=== PATIENT | male | born 1975 | race Native Hawaiian/Other Pacific Islander ===

== ENCOUNTER 2018-07-17 11:55 | Emergency (ER) | payer OTHER ==
[~2018-07-17] VITALS: Ht 175.3 cm; Wt 62.3 kg
[2018-07-17 11:56] VITALS: BP 133/90
[2018-07-17] MEDS ORDERED: ACYC1CAP20 PO (12:07)
[2018-07-17] MEDS ORDERED: ADDE1TAB14 PO (12:07)
[2018-07-17] MEDS ORDERED: IBUP80TA PO (12:07)
[2018-07-17] MEDS ORDERED: BACT800T5 PO (12:52)
[2018-07-17] MEDS ORDERED: IBUP-1022 PO (12:52)
== END 2018-07-17 13:05 | disposition home or self-care (01) ==
LOC: M ED 11:55
DX: L72.3 Sebaceous cyst (principal); Z87.891 Personal history of nicotine dependence; Z91.048 Other nonmedicinal substance allergy status; Z91.040 Latex allergy status; Z79.899 Other long term (current) drug therapy

== ENCOUNTER 2018-10-08 17:06 | Emergency (ER) | payer OTHER, MEDICAID ==
[~2018-10-08] VITALS: Ht 175.3 cm; Wt 65.6 kg
[~2018-10-08 17:06] MED LIST: ACYC1CAP20 PO; ADDE1TAB14 PO; BACT800T5 PO; IBUP-1022 PO; IBUP80TA PO
[2018-10-08] MEDS ORDERED: RANI1TAB38 PO (17:15)
[2018-10-08] MEDS ORDERED: LIDOCAINE 5% (LIDODERM) PATCH TD ONE (18:45)
[2018-10-08 18:52] LABS: BASO # 0.1 10^3/uL (0.0-0.2); BASO % 0.9 % (0.0-1.0); EOS # 0.4 10^3/uL (0.0-0.50); EOS % 6.6 % (0.0-3.0); HEMATOCRIT 46.1 % (42.0-52.0); LYMPH # 2.1 10^3/uL (1.5-4.5); LYMPH % 33.1 % (24.0-44.0); MEAN CORPUSCULAR HEMOGLOBIN 31.5 pg (27.0-33.0); MEAN CORPUSCULAR HGB CONC 34.7 g/dl (32.0-36.5); MEAN CORPUSCULAR VOLUME 90.7 fl (80.0-96.0); MONO # 0.4 10^3/uL (0.0-0.8); NEUTROPHILS # 3.4 10^3/uL (1.8-7.7); NEUTROPHILS % 53.2 % (36.0-66.0); PLATELET COUNT, AUTOMATED 271 10^3/uL (150-450); RED BLOOD COUNT 5.08 10^6/uL (4.30-6.10); WHITE BLOOD COUNT 6.3 10^3/uL (4.0-10.0)
[2018-10-08] MEDS ORDERED: **NOTE PATIENT COMMENT** MISC XX SCH (21:00)
--- NOTE | 2018-10-08 21:09 | REPVR ---
EXAM: US Retroperitoneal Limited, Kidneys EXAM DATE/TIME: 10/08/2018 7:51 PM CLINICAL HISTORY: 43 years old, male; Abdominal pain; Flank; Left; Additional info: Left back/flank pain, polyuria TECHNIQUE: Imaging protocol: Real-time ultrasound of the retroperitoneum with image documentation. Examination was focused on the kidneys. COMPARISON: No relevant prior studies available. FINDINGS: Right kidney: The right kidney measures 11.5 x 5.3 x 6.1 cm.. No hydronephrosis. There is a well-circumscribed hypoechoic exophytic lesion projecting off the upper pole of the right kidney measuring 1 cm in maximum diameter. A second hypoechoic lesion with internal echoes noted in the upper pole measuring 1.6 x 2 x 2.6 cm. The rim appears somewhat thickened. The lesion is avascular on color Doppler examination. Left kidney: The left kidney measures 11.3 x 6.3 x 5.4 cm.. No hydronephrosis. There is a simple cyst in the lower pole measuring 3.4 x 3 x 3 cm. Bladder: The bladder is relatively decompressed. IMPRESSION: 1. No hydronephrosis in either kidney. 2. 2 cysts with internal echoes in the upper pole the right kidney. The largest measures 2.6 cm Findings suggest a thickened rim and internal echoes in the larger lesion. Ultrasound should be performed. If cysts are not seen in this location, CT or MR with contrast should be performed. 3. Simple cyst in the lower pole of the left kidney. COMMENT: Consistent with the [employer]'s Incidental Findings Committee Report (J Am Rubens Radiol 2010): Unless the patient's specific circumstances suggest otherwise, any liver lesion 0.5 cm or less, any cystic kidney lesion less than 1.0 cm, and/or any adrenal lesion 1.0 cm or less not otherwise characterized in this report as possessing suspicious or indeterminate imaging features is/are highly likely to be benign and do not require follow-up imaging or biopsy. Electronically signed by: Britni Harris On 10/08/2018 21:09:11 PM
[2018-10-08] MEDS ORDERED: NAPR-837 PO (21:28)
[2018-10-08] MEDS ORDERED: LIDO5DIS41 TD (21:28)
[2018-10-08] MEDS ORDERED: ROBA500T PO (21:28)
[2018-10-08] MEDS ORDERED: METHOCARBAMOL 750 MG TAB PO ONE (21:30)
[2018-10-08 21:36] VITALS: BP 129/93
[2018-10-09] MEDS ORDERED: **NOTE PATIENT COMMENT** MISC XX ONE (07:00)
--- NOTE | 2018-10-09 12:48 | ED PDOC ---
Post-Departure Follow-Up rahel leger faxed formal report of renal us for fu Aurelio Asif MD Oct 09, 2018 12:48
== END 2018-10-08 21:38 | disposition home or self-care (01) ==
LOC: M ED 17:06
DX: M54.5 Low back pain (principal); R93.89 Abnormal findings on diagnostic imaging of other specified body structures; N28.1 Cyst of kidney, acquired; R35.8 Other polyuria; N45.1 Epididymitis; Z91.040 Latex allergy status; Z91.048 Other nonmedicinal substance allergy status; Z79.899 Other long term (current) drug therapy

== ENCOUNTER 2018-12-22 16:21 | Emergency (ER) | payer OTHER, MEDICAID ==
[~2018-12-22] VITALS: Ht 175.3 cm; Wt 71.4 kg
[~2018-12-22 16:21] MED LIST changes: +LIDO5DIS41 TD; +NAPR-837 PO; +RANI1TAB38 PO; +ROBA500T PO
[2018-12-22] MEDS ORDERED: ACET-683 PO (16:30)
[2018-12-22] MEDS ORDERED: KETOROLAC 30 MG/ML VIAL (J1885) IV ONE (17:30)
[2018-12-22] MEDS ORDERED: NS 1,000 ML IV ONE (17:30)
[2018-12-22] MEDS ORDERED: ONDANSETRON 4MG/2ML VIAL (J2405) IV ONE (17:30)
[2018-12-22 17:32] LABS: BASO # 0.1 10^3/uL (0.0-0.2); BASO % 0.6 % (0.0-1.0); EOS # 0.3 10^3/uL (0.0-0.5); EOS % 3.1 % (0.0-3.0); HEMATOCRIT 46.1 % (42.0-52.0); HEMOGLOBIN 15.5 g/dl (13.5-17.5); LYMPH # 1.4 10^3/uL (1.5-5.0); LYMPH % 15.9 % (24.0-44.0); MEAN CORPUSCULAR HGB CONC 33.6 g/dl (32.0-36.5); MEAN CORPUSCULAR VOLUME 92.2 fl (80.0-96.0); MONO # 0.6 10^3/uL (0.0-0.8); MONO % 6.9 % (0.0-5.0); NEUTROPHILS # 6.7 10^3/uL (1.5-8.5); NEUTROPHILS % 73.3 % (36.0-66.0); PLATELET COUNT, AUTOMATED 248 10^3/uL (150-450); WHITE BLOOD COUNT 9.1 10^3/uL (4.0-10.0)
[2018-12-22 17:58] LABS: ALBUMIN 3.8 GM/DL (3.2-5.2); ALT/SGPT 21 U/L (12-78); AMYLASE 64 U/L (25-115); BILIRUBIN,DIRECT 0.2 MG/DL (0.0-0.2); BILIRUBIN,TOTAL 0.5 MG/DL (0.2-1.0); BLOOD UREA NITROGEN 21 MG/DL (7-18); CALCIUM LEVEL 8.2 MG/DL (8.5-10.1); CARBON DIOXIDE LEVEL 29 MEQ/L (21-32); CHLORIDE LEVEL 102 MEQ/L (98-107); CPK CREATINE PHOSPHOKINASE 358 U/L (39-308); CREATININE FOR GFR 1.09 MG/DL (0.70-1.30); GLOMERULAR FILTRATION RATE > 60.0 (>60); GLUCOSE, FASTING 92 MG/DL (70-100); LIPASE 266 U/L (73-393); POTASSIUM SERUM 4.2 MEQ/L (3.5-5.1); SODIUM LEVEL 136 MEQ/L (136-145); TOTAL PROTEIN 6.8 GM/DL (6.4-8.2)
--- NOTE | 2018-12-22 18:01 | REPVR ---
PROCEDURE INFORMATION: Exam: CT Head without contrast Exam date and time: 12/22/2018 5:04 PM Clinical history: 43 years old, male; Pain; Headache not specified TECHNIQUE: Imaging protocol: Computed tomography of the head without contrast. Radiation optimization: All CT scans at this facility use at least one of these dose optimization techniques: automated exposure control; mA and/or kV adjustment per patient size (includes targeted exams where dose is matched to clinical indication); or iterative reconstruction. COMPARISON: No relevant prior studies available. FINDINGS: Brain: No hemorrhage. Unremarkable white matter for the patient's age. No mass effect. No evolving territorial infarct. Ventricles: No ventriculomegaly. Bones/joints: Unremarkable. No acute fracture. Sinuses: Visualized sinuses are unremarkable. No fluid levels. Mastoid air cells: Visualized mastoid air cells are well aerated. Soft tissues: Unremarkable. IMPRESSION: No acute intracranial abnormality seen. Electronically signed by: Una Moon On 12/22/2018 18:00:56 PM
[2018-12-22] MEDS ORDERED: ACETAMINOPHEN 325 MG TAB PO ONE (19:00)
--- NOTE | 2018-12-22 20:10 | REPVR ---
PROCEDURE INFORMATION: Exam: US Abdomen Limited, Right Upper Quadrant Exam date and time: 12/22/2018 7:45 PM Clinical history: 43 years old, male; Other: Pain after eating; Additional info: Ruq pain after eating TECHNIQUE: Imaging protocol: Real-time ultrasound of the abdomen with image documentation. Examination was focused on the right upper quadrant. COMPARISON: RENAL US 10/08/2018 7:42 PM FINDINGS: Liver: Normal. No masses. Gallbladder: The gallbladder wall measures 1.6 mm. Small echogenic focus along the nondependent gallbladder wall most likely representing a polyp measuring 2.4 mm. No visible shadowing stones. The sonographic Malik's sign was negative. Common bile duct: The common bile duct measures 3.6 mm. Pancreas: Visualized pancreas is unremarkable. Right kidney: The right kidney measures 11.9 cm in length. There are renal cysts, the largest measuring 2.1 cm. No hydronephrosis. IMPRESSION: No acute findings. Electronically signed by: Una Moon On 12/22/2018 20:10:11 PM
[2018-12-22 20:35] VITALS: BP 114/76
== END 2018-12-22 20:44 | disposition home or self-care (01) ==
LOC: M ED 16:21
DX: E86.0 Dehydration (principal); R51 Headache; R42 Dizziness and giddiness; R10.11 Right upper quadrant pain; Z91.040 Latex allergy status
CPT/HCPCS: 70450; 76705; 80048; 80076; 81001; 82150; 82550; 83690; 85025; 96361; 96374; 96375; 99284; J1885; J2405

== ENCOUNTER → 2019-03-13 | Outpatient (REF) | payer OTHER ==
[~2019-03-13] MED LIST changes: +ACET-683 PO
[2019-03-13 17:43] LABS: APPEARANCE, URINE CLEAR (CLEAR); BACTERIA, URINE AUTO NEGATIVE (NEGATIVE); BILIRUBIN, URINE AUTO NEGATIVE (NEGATIVE); BLOOD, URINE BLOOD NEGATIVE (NEGATIVE); COLOR, URINE YELLOW (YELLOW); GLUCOSE, URINE (UA) AUTO NEGATIVE (NEGATIVE); KETONE, URINE AUTO NEGATIVE (NEGATIVE); LEUKOCYTE ESTERASE, URINE AUTO NEGATIVE (NEGATIVE); MUCUS, URINE SMALL (NEGATIVE); NITRITE, URINE AUTO NEGATIVE (NEGATIVE); PROTEIN, URINE AUTO NEGATIVE (NEGATIVE); RBC, URINE AUTO 0 /HPF (0-3); SPECIFIC GRAVITY URINE AUTO 1.017 (1.002-1.035); SQUAMOUS EPITHELIAL CELL UR AU 0 /HPF (0-6); UROBILINOGEN, URINE AUTO 0.2 mg/dL (0.0-2.0); WBC, URINE AUTO 0 /HPF (0-3)
== END ==
LOC: M SMT 17:02
PROVIDERS: ATTEND Nurse Practitioner Family
DX: R35.0 Frequency of micturition (principal)

== ENCOUNTER 2019-08-23 12:39 | Emergency (ER) | payer OTHER ==
[~2019-08-23] VITALS: Ht 175.3 cm; Wt 73.4 kg
[2019-08-23] MEDS ORDERED: MM S100C PO (12:50)
[2019-08-23] MEDS ORDERED: FLOM0.4C39 PO (12:50)
[2019-08-23] MEDS ORDERED: LIDO5DIS41 TD (14:57)
[2019-08-23] MEDS ORDERED: LIDOCAINE 5% (LIDODERM) PATCH TD ONE (15:00)
[2019-08-23] MEDS ORDERED: IBUPROFEN 800 MG TAB PO ONE (15:00)
[2019-08-23 15:06] VITALS: BP 169/109
[2019-08-23] MEDS ORDERED: **NOTE PATIENT COMMENT** MISC XX SCH (21:00)
--- NOTE | 2019-08-24 07:21 | REP ---
CT BRAIN WITHOUT CONTRAST: CT brain performed without IV contrast. Coronal reconstruction images are performed. The ventricles are normal in size and position. There is no midline shift or mass effect. Rdz-white differentiation is well maintained. There is no acute intracranial hemorrhage or extra-axial fluid collection. No skull fracture is seen. Visualized paranasal sinuses and mastoid air cells are clear. IMPRESSION: Negative noncontrast CT brain. Electronically Signed by Terry Rdz MD 08/24/2019 09:49 A
--- NOTE | 2019-08-24 07:23 | REP ---
CT CERVICAL SPINE: CT cervical spine performed in the axial plane. Sagittal and coronal reconstruction images are performed. There is no compression fracture. There is no prevertebral soft tissue swelling. There is slight retrolisthesis of C5 on C6 of about 2 mm as well as C6 on C7 of about 2 mm. At that level, there is moderate disc space narrowing and subchondral sclerosis at both C5-6 and C6-7. There is anterior and posterior spurring. There is bilateral foraminal narrowing at C5-6 and C6-7. There is mild spinal canal narrowing at those levels as well. IMPRESSION: No acute fracture or dislocation. Degenerative changes C5-6 and C6-7. Electronically Signed by Terry Rdz MD 08/24/2019 09:57 A
== END 2019-08-23 15:12 | disposition home or self-care (01) ==
LOC: M ED 12:39
DX: Z04.1 Encounter for examination and observation following transport accident (principal); Z91.040 Latex allergy status; Z91.048 Other nonmedicinal substance allergy status

== ENCOUNTER → 2019-09-12 | Outpatient (CLI) | payer OTHER, MEDICAID ==
[~2019-09-12] MED LIST changes: +FLOM0.4C39 PO; +MM S100C PO
== END ==
LOC: M LABSMTC 12:51
PROVIDERS: ATTEND Family Medicine
DX: Z03.818 Encounter for observation for suspected exposure to other biological agents ruled out (principal); Z11.59 Encounter for screening for other viral diseases
CPT/HCPCS: C9803; U0003

== ENCOUNTER → 2020-01-08 | Outpatient (CLI) | payer MEDICAID | LOC: M LABSMTC 14:04 | PROVIDERS: ATTEND Family Medicine | DX: Z20.828 Contact with and (suspected) exposure to other viral communicable diseases (principal) | CPT/HCPCS: C9803; U0003 ==